=== PATIENT | female | born 1985 | race African-American/Black ===

== ENCOUNTER 2021-07-22 07:52 | Emergency (ER) | payer OTHER ==
[~2021-07-22] VITALS: Ht 162.6 cm; Wt 113.4 kg
[2021-07-22] MEDS ORDERED: IBUPROFEN 600 MG TAB PO STA (08:04)
[2021-07-22 09:27] VITALS: BP 122/87
== END 2021-07-22 09:03 | disposition home or self-care (01) ==
LOC: ER 08:00
DX: R09.1 Pleurisy (principal); J45.909 Unspecified asthma, uncomplicated; D64.9 Anemia, unspecified
CPT/HCPCS: 36415; 85379; 93005; 99283